=== PATIENT | female | born 1985 | race Caucasian/White ===

== ENCOUNTER 2019-09-23 13:58 | Emergency (ER) | payer OTHER ==
[2019-09-23] MEDS ORDERED: RABIES VACCINE HUMAN 2.5 INTERNATIONAL UNITS/ML VIAL (90675) As Ordered ONE (15:13)
[2019-09-23] MEDS ORDERED: RABIES VACCINE HUMAN 2.5 INTERNATIONAL UNITS/ML VIAL (90675) ONE (15:13)
== END 2019-09-23 15:41 | disposition home or self-care (01) ==
LOC: M ED 13:58
DX: S61.250A Open bite of right index finger without damage to nail, initial encounter (principal); W55.01XA Bitten by cat, initial encounter; Y92.410 Unspecified street and highway as the place of occurrence of the external cause; Y93.89 Activity, other specified; Y99.9 Unspecified external cause status

== ENCOUNTER 2019-09-26 14:30 | Emergency (ER) | payer OTHER ==
[2019-09-26] MEDS ORDERED: RABIES VACCINE HUMAN 2.5 INTERNATIONAL UNITS/ML VIAL (90675) ONE (16:16)
[2019-09-26] MEDS ORDERED: RABIES VACCINE HUMAN 2.5 INTERNATIONAL UNITS/ML VIAL (90675) As Ordered ONE (16:16)
== END 2019-09-26 16:43 | disposition home or self-care (01) ==
LOC: M ED 14:30
DX: Z20.3 Contact with and (suspected) exposure to rabies (principal); Z23 Encounter for immunization